=== PATIENT | male | born 1945 | race Caucasian/White ===

== ENCOUNTER 2020-06-06 10:34 | Outpatient (CLI) | payer MEDICARE, BC ==
[2020-06-06] VITALS (22 sets, daily range): BP systolic 140–182; BP diastolic 78–98
== END 2020-06-06 23:59 | disposition home or self-care (01) ==
LOC: CARD DIAG 10:34
PROVIDERS: ATTEND Internal Medicine Cardiovascular Disease
DX: R42 Dizziness and giddiness (principal)
CPT/HCPCS: 93660

== ENCOUNTER 2021-03-20 18:23 | Emergency (ER) | payer MEDICARE, BC ==
[~2021-03-20] VITALS: Ht 172.7 cm; Wt 94.5 kg
[2021-03-20 18:29] VITALS: BP 141/88
[2021-03-20 19:10] LABS: BASOPHILS % (AUTO) 0.2 % (0-1); EOSINOPHILS # (AUTO) 0.1 X10'3 (0-0.9); EOSINOPHILS % (AUTO) 2.3 % (0-6); HEMATOCRIT 44.6 % (42.0-52.0); HEMOGLOBIN 14.9 g/dl (14.0-17.9); LYMPHOCYTES # (AUTO) 2.2 X10'3 (1.1-4.8); LYMPHOCYTES % (AUTO) 43.3 % (21-51); MEAN CORPUSCULAR HEMOGLOBIN 31.3 PG (27.0-31.0); MEAN CORPUSCULAR HGB CONC 33.4 g/dL (33.0-36.5); MEAN CORPUSCULAR VOLUME 93.7 FL (78-98); MEAN PLATELET VOLUME 8.3 FL (7.4-10.4); MONOCYTES # (AUTO) 0.4 X10'3 (0-0.9); MONOCYTES % (AUTO) 8.4 % (2-12); NEUTROPHILS # (AUTO) 2.3 X10'3 (1.8-7.7); NEUTROPHILS % (AUTO) 45.8 % (42-75); PLATELET COUNT 215 X10'3 (140-440); RED BLOOD COUNT 4.77 X10'6 (4.70-6.10); RED CELL DISTRIBUTION WIDTH 13.8 % (11.5-14.5); WHITE BLOOD COUNT 5.1 X10'3 (4.5-11.0)
[2021-03-20 19:12] LABS: D-DIMER 0.32 MG/L FEU (0-0.50)
[2021-03-20 19:17] LABS: ALANINE AMINOTRANSFERASE 34 U/L (12-78); ALBUMIN 3.4 G/DL (3.4-5.0); ALBUMIN/GLOBULIN RATIO 0.9 (1.1-1.5); ALKALINE PHOSPHATASE 96 IU/L (46-116); ANION GAP 8 (8-16); ASPARTATE AMINO TRANSFERASE 21 U/L (10-37); BILIRUBIN,TOTAL 0.7 MG/DL (0.1-1.0); BLOOD UREA NITROGEN 19 MG/DL (7-18); BUN/CREATININE RATIO 22.6 (5.4-32.0); CALCIUM 8.8 MG/DL (8.5-10.1); CHLORIDE 103 MMOL/L (99-107); CREATININE 0.84 MG/DL (0.60-1.10); ETHANOL < 0.010 GM/DL (0.0-0.010); GLUCOSE 194 MG/DL (70-104); POTASSIUM 4.2 MMOL/L (3.5-5.1); SODIUM 139 MMOL/L (135-145); TOTAL CARBON DIOXIDE 28.2 MMOL/L (24-32); eGFR 89 ML/MIN
[2021-03-20 19:29] LABS: URINE AMPHETAMINE SCREEN NEGATIVE (Neg); URINE BARBITUATE SCREEN NEGATIVE (Neg); URINE BENZODIAZEPINES SCREEN NEGATIVE (Neg); URINE CANNABINOID SCREEN NEGATIVE (Neg); URINE COCAINE SCREEN NEGATIVE (Neg); URINE METHADONE SCREEN NEGATIVE (Neg); URINE OPIATE SCREEN NEGATIVE (Neg); URINE PHENCYCLIDINE SCREEN NEGATIVE (Neg)
== END 2021-03-20 21:56 | disposition home or self-care (01) ==
LOC: ER 18:24
DX: H57.89 Other specified disorders of eye and adnexa (principal); H57.12 Ocular pain, left eye; I10 Essential (primary) hypertension; E11.9 Type 2 diabetes mellitus without complications
CPT/HCPCS: 36415; 80053; 80305; 80320; 85025; 85379; 85651; 99283

== ENCOUNTER 2022-06-11 18:18 | Inpatient (IN) | payer MEDICARE, BC ==
[~2022-06-11] VITALS: Ht 172.7 cm; Wt 93.2 kg
[2022-06-11] MEDS ORDERED: normal saline 1000ML IV soln IVB ONE (18:30)
[2022-06-11 18:55] LABS: CLARITY,URINE CLEAR (Clear); COLOR,URINE YELLOW (Yellow); GLUCOSE, URINE >=1000 mg/dl (Neg); KETONES,URINE 15 mg/dl (Neg); LEUKOCYTE ESTERASE ,URINE NEGATIVE (Neg); NITRITES, URINE NEGATIVE (Neg); OCCULT BLOOD,URINE TRACE-INTACT (Neg); PH,URINE 5.5 (4.8-8.0); PROTEIN,URINE NEGATIVE (Neg); UROBILINOGEN,URINE 0.2 E.U/dL (0.2-1.0)
[2022-06-11 19:05] LABS: UA COLLECTION TYPE URINAL
[2022-06-11 19:08] LABS: BACTERIA,URINE NONE SEEN /HPF (Neg); RBC,URINE 0-2 /HPF (0-2); SQUAMOUS EPITHELIAL CELL,UR FEW /LPF (FEW); WBC,URINE 0-4 /HPF (0-4)
[2022-06-11 19:11] LABS: BASOPHILS % (AUTO) 0.5 % (0-1); EOSINOPHILS % (AUTO) 0.6 % (0-6); HEMATOCRIT 49.5 % (42.0-52.0); HEMOGLOBIN 16.7 g/dl (14.0-17.9); LYMPHOCYTES % (AUTO) 42.4 % (21-51); MEAN CORPUSCULAR HEMOGLOBIN 31.2 PG (27.0-31.0); MEAN CORPUSCULAR HGB CONC 33.8 g/dL (33.0-36.5); MEAN CORPUSCULAR VOLUME 92.3 FL (78-98); MEAN PLATELET VOLUME 8.7 FL (7.4-10.4); MONOCYTES # (AUTO) 0.6 X10'3 (0-0.9); MONOCYTES % (AUTO) 8.6 % (2-12); NEUTROPHILS # (AUTO) 3.4 X10'3 (1.8-7.7); NEUTROPHILS % (AUTO) 47.9 % (42-75); PLATELET COUNT 227 X10'3 (140-440); RED BLOOD COUNT 5.36 X10'6 (4.70-6.10); RED CELL DISTRIBUTION WIDTH 13.5 % (11.5-14.5)
[2022-06-11 19:17] LABS: ALANINE AMINOTRANSFERASE 32 U/L (12-78); ALBUMIN 3.6 G/DL (3.4-5.0); ALBUMIN/GLOBULIN RATIO 0.9 (1.1-1.5); ALKALINE PHOSPHATASE 99 IU/L (46-116); ANION GAP 11 (8-16); ASPARTATE AMINO TRANSFERASE 25 U/L (10-37); BILIRUBIN,TOTAL 0.9 MG/DL (0.1-1.0); BLOOD UREA NITROGEN 19 MG/DL (7-18); BUN/CREATININE RATIO 20.7 (5.4-32.0); CALCIUM 9.1 MG/DL (8.5-10.1); CHLORIDE 100 MMOL/L (99-107); CREATININE 0.92 MG/DL (0.60-1.10); GLUCOSE 218 MG/DL (70-104); SODIUM 138 MMOL/L (135-145); TOTAL CARBON DIOXIDE 26.6 MMOL/L (24-32); TOTAL PROTEIN 7.8 G/DL (6.4-8.2); eGFR 80 ML/MIN
[2022-06-11 19:26] LABS: MAGNESIUM 2.3 MG/DL (1.5-2.4)
[2022-06-11] MEDS ORDERED: LOSA50TA64 PO (19:26)
[2022-06-11] MEDS ORDERED: EMPA10TA PO (19:26)
[2022-06-11] MEDS ORDERED: BLOO-1718 (19:26)
[2022-06-11] MEDS ORDERED: METO-395 PO (19:26)
[2022-06-11] MEDS ORDERED: HYDR-3964 PO (19:26)
[2022-06-11] MEDS ORDERED: [UNRECOGNIZED DRUG - CODE] (19:28)
[2022-06-11] MEDS ORDERED: [UNRECOGNIZED DRUG - CODE] (19:28)
[2022-06-11] MEDS ORDERED: ALBU18HF2 INH (19:28)
--- NOTE | 2022-06-11 19:32 | NUR ---
Critical Value lab TNI 1365. Dr. Leo notified
[2022-06-11] MEDS ORDERED: metoprolol tartrate 1mg/ml inj IV STA (21:11)
[2022-06-11] MEDS ORDERED: heparin 10,000 units/1 ML INJ IV PRN (21:15)
[2022-06-11] MEDS: HEPARIN SOD,PORK IN 0.45% NACL 250 ML IV SCH (21:15)
[2022-06-11] MEDS ORDERED: heparin 10,000 units/1 ML INJ IV ONE (21:15)
[2022-06-11] MEDS ORDERED: aspirin 81mg tab.chew PO ONE (21:15)
[2022-06-11] MEDS ORDERED: atorvastatin 20mg tablet PO SCH (21:15)
[2022-06-11] MEDS ORDERED: magnesium 4gm in 100ml NS 100 ML IV PRN (21:55)
[2022-06-11] MEDS ORDERED: mag hydrox/Alum hydrox/simeth 30ml oral suspension PO PRN (21:55)
[2022-06-11] MEDS ORDERED: POTASSIUM BICARB 20meq eff tab 20 MEQ TABLET.EFF PO PRN ×2 (21:55)
[2022-06-11] MEDS ORDERED: HYDROcodone/acetaminophen 10/325mg tab PO PRN (21:55)
[2022-06-11] MEDS ORDERED: magnesium 2GM in 50ml NS 50 ML IV PRN (21:55)
[2022-06-11] MEDS ORDERED: morphine 2 MG/ML inj. syringe IV PRN ×2 (21:55)
[2022-06-11] MEDS ORDERED: magnesium hydroxide 30ml (MOM) UD suspension PO PRN (21:55)
[2022-06-11] MEDS ORDERED: acetaminophen 325mg tablet PO PRN ×2 (21:55)
[2022-06-11] MEDS ORDERED: potassium CL 10mEq/100ml bag 100 ML IV PRN (21:55)
[2022-06-11] MEDS ORDERED: HYDROcodone/acetaminophen 5mg/325mg tablet PO PRN (21:55)
[2022-06-11] MEDS ORDERED: ondansetron/PF 4mg/2ml inj IV PRN (21:55)
[2022-06-11] MEDS ORDERED: magnesium Cl slow-release 64mg tablet PO PRN (21:55)
[2022-06-11 22:01] LABS: APTT 26 SECONDS (22-32)
[2022-06-11] MEDS: metoprolol tartrate 25mg tablet PO SCH (22:08)
--- NOTE | 2022-06-11 22:50 | NUR ---
Critical value from lab TNI 1265
[2022-06-12] VITALS (15 sets, daily range): BP systolic 120–166; BP diastolic 69–95
[2022-06-12] MEDS ORDERED: insulin Lispro (HumaLOG) vial - multi-dose SQ SCH (00:55)
[2022-06-12] MEDS ORDERED: DEXTROSE 15 GM of carb/4 tabs (each vial/BOTTLE has 4 tablets) PO PRN ×2 (00:55)
[2022-06-12] MEDS ORDERED: MESSAGE TO PHARMACY PO ONE (00:55)
[2022-06-12] MEDS ORDERED: dextrose 50%-water 50ml dispensing syringe IV PRN ×2 (00:55)
[2022-06-12] MEDS ORDERED: glucagon, human recombinant 1mg kit SUBCUT PRN (00:55)
[2022-06-12] MEDS ORDERED: HYDROcodone/acetaminophen 5mg/325mg tablet PO PRN (01:35)
[2022-06-12] MEDS ORDERED: albuterol 2.5 MG/3 ML nebule NEB PRN (01:40)
--- NOTE | 2022-06-12 02:37 | NUR ---
REPORT GIVEN TO CATHRYN MORRIS
--- NOTE | 2022-06-12 03:10 | NUR ---
Pt brought up on [facility] walked to bed. Was told that PTT was drawn in ER right before being brought up here. The only PTT showing is the one drawn at 1844. Awaiting PTT to adjust heparin drip if needed. Pt heparin drip is running at 10ml/hr.
[2022-06-12 03:54] LABS: APTT 28 SECONDS (22-32)
--- NOTE | 2022-06-12 04:51 | NUR ---
PTT 28 Changed patient's heparin drip per protocol from 1000 units to 1400 units per hour. IV spreadsheet did not ask for cosigner. Anu Eli RN witnessed rate change.
--- NOTE | 2022-06-12 06:32 | NUR ---
Problems reprioritized. Patient report given, questions answered & plan of care reviewed with ARTURO Ling.
--- NOTE | 2022-06-12 06:33 | NUR ---
Patient in room PCU 3025. I have received report from aren mansfield and had the opportunity to ask questions and assume patient care.
[2022-06-12 07:01] LABS: BASOPHILS % (AUTO) 0.4 % (0-1); EOSINOPHILS # (AUTO) 0.1 X10'3 (0-0.9); EOSINOPHILS % (AUTO) 1.3 % (0-6); HEMOGLOBIN 14.9 g/dl (14.0-17.9); LYMPHOCYTES # (AUTO) 2.8 X10'3 (1.1-4.8); LYMPHOCYTES % (AUTO) 43.9 % (21-51); MEAN CORPUSCULAR HEMOGLOBIN 31.2 PG (27.0-31.0); MEAN CORPUSCULAR HGB CONC 33.8 g/dL (33.0-36.5); MEAN CORPUSCULAR VOLUME 92.5 FL (78-98); MONOCYTES # (AUTO) 0.5 X10'3 (0-0.9); NEUTROPHILS % (AUTO) 46.4 % (42-75); PLATELET COUNT 188 X10'3 (140-440); RED BLOOD COUNT 4.76 X10'6 (4.70-6.10); RED CELL DISTRIBUTION WIDTH 13.7 % (11.5-14.5); WHITE BLOOD COUNT 6.5 X10'3 (4.5-11.0)
[2022-06-12] MEDS: docusate sod 100mg capsule PO SCH ×2 (07:16→19:46)
[2022-06-12] MEDS: metoprolol tartrate 25mg tablet PO SCH (07:22)
[2022-06-12] MEDS: atorvastatin 20mg tablet PO SCH (07:22)
[2022-06-12 07:30] LABS: ALANINE AMINOTRANSFERASE 30 U/L (12-78); ALBUMIN 3.1 G/DL (3.4-5.0); ALBUMIN/GLOBULIN RATIO 0.8 (1.1-1.5); ALKALINE PHOSPHATASE 66 IU/L (46-116); ANION GAP 10 (8-16); ASPARTATE AMINO TRANSFERASE 33 U/L (10-37); BILIRUBIN,TOTAL 0.8 MG/DL (0.1-1.0); BLOOD UREA NITROGEN 16 MG/DL (7-18); BUN/CREATININE RATIO 20.5 (5.4-32.0); CALCIUM 8.7 MG/DL (8.5-10.1); CHLORIDE 105 MMOL/L (99-107); CREATININE 0.78 MG/DL (0.60-1.10); GLUCOSE 126 MG/DL (70-104); MAGNESIUM 2.1 MG/DL (1.5-2.4); POTASSIUM 4.6 MMOL/L (3.5-5.1); SODIUM 142 MMOL/L (135-145); TOTAL CARBON DIOXIDE 26.9 MMOL/L (24-32); TOTAL PROTEIN 6.9 G/DL (6.4-8.2); eGFR > 90 ML/MIN
[2022-06-12] MEDS: EMPAGLIFLOZIN 10 MG TABLET PO SCH (08:00)
[2022-06-12] MEDS: K and/or MAG REPLACEMENT MC SCH ×2 (08:00→19:50)
[2022-06-12] MEDS ORDERED: aspirin 81mg, enteric-coated 1 TAB TABLET.DR PO SCH (08:00)
[2022-06-12 08:29] LABS: HEMOGLOBIN A1C 10.9 % (4.5-6.2)
--- NOTE | 2022-06-12 08:45 | NUR ---
PT REFUSED JARDIANCE. NOTIFIED
[2022-06-12] MEDS ORDERED: PERFLUTREN PROTEIN-A MICROSPHR (Optison) 0.22 MG/ML 3ML VIAL IV ONE (09:40)
[2022-06-12] MEDS: HEPARIN SOD,PORK IN 0.45% NACL 250 ML IV SCH (10:44)
[2022-06-12 14:18] LABS: CHOL/HDL RATIO 4.4 (0.00-4.99); CHOLESTEROL 213 MG/DL (0-200); HDL CHOLESTEROL 48 MG/DL (35-60); LDL CHOLESTEROL 139 MG/DL (50-100); TRIGLYCERIDES 95 MG/DL (20-135)
[2022-06-12] MEDS ORDERED: nitroGLYCERIN-Tridil 50MG/D5W 250 ML IV ONE (14:26)
[2022-06-12] MEDS ORDERED: heparin 1,000unit/ml 10ml vial 10 ML ONE (14:27)
[2022-06-12] MEDS ORDERED: fentaNYL/PF 50MCG/1 ML 2ML syringe ONE (14:27)
[2022-06-12] MEDS ORDERED: iohexol 350MG/ML 100ml bottle IV ONE ×3 (14:27→16:37)
[2022-06-12] MEDS ORDERED: verapamil 2.5 mg/ml inj IV ONE (14:27)
[2022-06-12] MEDS ORDERED: midazolam 1 mg/ML 2ml injection ONE (14:27)
[2022-06-12] MEDS ORDERED: LIDOcaine 1%/PF 5ML 10 MG/ML VIAL ONE ×2 (14:27→15:37)
[2022-06-12] MEDS ORDERED: heparin 25,000 UNIT/250ml bag 250 ML IV ONE (15:01)
[2022-06-12] MEDS ORDERED: ticagrelor 90mg tablet ONE (16:42)
[2022-06-12] MEDS ORDERED: PEG 3350/Na sulf,bicarb,Cl/KCl oral sol 4 liter bottle PO ONE (17:00)
--- NOTE | 2022-06-12 17:11 | NUR ---
RECD REPORT FROM KERWIN MORRIS BELT MEASURER
[2022-06-12 17:18] LABS: ISTAT Hct ART 44 %PCV (42-52); ISTAT O2 SATURATION ARTERIAL 96 % (95-98); ISTAT SOURCE ART
[2022-06-12] MEDS ORDERED: HYDROcodone/acetaminophen 10/325mg tab PO PRN (18:05)
[2022-06-12] MEDS: normal saline 1000ml 1,000 ML IV SCH (18:06)
--- NOTE | 2022-06-12 18:32 | NUR ---
Problems reprioritized. Patient report given, questions answered & plan of care reviewed with JO OSORIO RN.
[2022-06-12] MEDS: HYDROcodone/acetaminophen 5mg/325mg tablet PO PRN ×2 (19:43→23:51)
[2022-06-12] MEDS: furosemide 20 MG/2 ML vial IV SCH (19:46)
[2022-06-12] MEDS ORDERED: insulin glargine (Lantus) pen - multi-dose SQ SCH (21:00)
[2022-06-12] MEDS ORDERED: metoprolol succinate 25mg (24-HOUR) SR. Tablet PO SCH (21:00)
[2022-06-13] MEDS: normal saline 1000ml 1,000 ML IV SCH ×2 (01:44→07:15)
[2022-06-13 02:00] VITALS: BP 138/76
[2022-06-13 06:13] LABS: BASOPHILS % (AUTO) 0.3 % (0-1); EOSINOPHILS # (AUTO) 0.1 X10'3 (0-0.9); EOSINOPHILS % (AUTO) 1.7 % (0-6); HEMATOCRIT 40.2 % (42.0-52.0); HEMOGLOBIN 13.7 g/dl (14.0-17.9); LYMPHOCYTES # (AUTO) 2.1 X10'3 (1.1-4.8); LYMPHOCYTES % (AUTO) 38.8 % (21-51); MEAN CORPUSCULAR HEMOGLOBIN 31.2 PG (27.0-31.0); MEAN CORPUSCULAR HGB CONC 34.1 g/dL (33.0-36.5); MEAN CORPUSCULAR VOLUME 91.6 FL (78-98); MEAN PLATELET VOLUME 8.6 FL (7.4-10.4); MONOCYTES # (AUTO) 0.5 X10'3 (0-0.9); MONOCYTES % (AUTO) 9.1 % (2-12); NEUTROPHILS # (AUTO) 2.7 X10'3 (1.8-7.7); NEUTROPHILS % (AUTO) 50.1 % (42-75); PLATELET COUNT 174 X10'3 (140-440); RED BLOOD COUNT 4.39 X10'6 (4.70-6.10); RED CELL DISTRIBUTION WIDTH 13.2 % (11.5-14.5); WHITE BLOOD COUNT 5.4 X10'3 (4.5-11.0)
--- NOTE | 2022-06-13 06:22 | NUR ---
Patient in room PCU 3025. I have received report from JO OSORIO RN and had the opportunity to ask questions and assume patient care.
[2022-06-13 06:29] LABS: ALANINE AMINOTRANSFERASE 33 U/L (12-78); ALBUMIN 2.6 G/DL (3.4-5.0); ALBUMIN/GLOBULIN RATIO 0.8 (1.1-1.5); ALKALINE PHOSPHATASE 54 IU/L (46-116); ANION GAP 7 (8-16); ASPARTATE AMINO TRANSFERASE 26 U/L (10-37); BILIRUBIN,TOTAL 0.8 MG/DL (0.1-1.0); BLOOD UREA NITROGEN 15 MG/DL (7-18); BUN/CREATININE RATIO 21.7 (5.4-32.0); CALCIUM 8.1 MG/DL (8.5-10.1); CHLORIDE 107 MMOL/L (99-107); CREATININE 0.69 MG/DL (0.60-1.10); GLUCOSE 99 MG/DL (70-104); MAGNESIUM 1.8 MG/DL (1.5-2.4); SODIUM 139 MMOL/L (135-145); TOTAL CARBON DIOXIDE 24.8 MMOL/L (24-32); TOTAL PROTEIN 5.9 G/DL (6.4-8.2); eGFR > 90 ML/MIN
[2022-06-13 06:45] VITALS: BP 112/76
[2022-06-13] MEDS: K and/or MAG REPLACEMENT MC SCH (08:00)
[2022-06-13] MEDS: atorvastatin 20mg tablet PO SCH (08:00)
[2022-06-13] MEDS ORDERED: ticagrelor 90mg tablet PO SCH ×2 (08:00→20:00)
[2022-06-13] MEDS: EMPAGLIFLOZIN 10 MG TABLET PO SCH (08:00)
[2022-06-13] MEDS ORDERED: aspirin 81mg, enteric-coated 1 TAB TABLET.DR PO SCH (08:00)
[2022-06-13] MEDS: furosemide 20 MG/2 ML vial IV SCH (08:00)
[2022-06-13] MEDS: docusate sod 100mg capsule PO SCH (08:00)
[2022-06-13] MEDS ORDERED: LANTUS SQ (09:43)
[2022-06-13] MEDS ORDERED: FURO-150 PO (09:43)
[2022-06-13] MEDS ORDERED: TICA90TA PO (09:43)
[2022-06-13] MEDS ORDERED: ASPI-1071 PO (09:43)
[2022-06-13] MEDS ORDERED: ROSU40TA PO (09:55)
[2022-06-13 11:00] VITALS: BP 148/81
--- NOTE | 2022-06-13 13:22 | NUR ---
Noted pt with T2DM, current A1c 10.9%. Pt seen at bedside for written and verbal DM education. Pt states he sees his PCP every couple of months though is hoping to get a referral for an button inspector. 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 Pt reports upon discharge he is to discontinue Jardiance and begin insulin. Pt states he recently got a DexCom for checking blood sugars though hasn't begun using it yet. All of patient's questions were answered at this time. RD contact information provided and pt encouraged to reach out if needed. Pt endorses a good appetite and denies food allergies or difficulty chewing/swallowing. Will remain available. Addendum: 06/13/22 at [address] Amended: Links added.
--- NOTE | 2022-06-13 13:45 | NUR ---
PT DISCHARGED IN STABLE CONDITION. LEFT FACILITY IN PRIVATE VEHICLE WITH SON. IV DC [facility]ULA INTACT. FOLLOW UP INSTRUCTIONS GIVEN, ALL QUESTIONS ANSWERED. ALL BELONGING IN HAND. Addendum: 06/13/22 at 1346 by Bernice Werner RN Amended: Links added.
[2022-06-14 06:37] LABS: ISTAT Hct MIX 43 %PCV (42-52); ISTAT O2 SATURATION MIX VENOUS 64 % (60-80); ISTAT SOURCE VEN
== END 2022-06-13 13:34 | disposition home or self-care (01) | DRG 246 ==
LOC: ER 18:19 → ED HOLD 22:03 → EDBEDREQ 22:13 → PCU 3S 06-12 02:56
PROVIDERS: ADMIT Internal Medicine; ATTEND Internal Medicine
PROC: 4A023N8 Measurement of Cardiac Sampling and Pressure, Bilateral, Percutaneous Approach (ICD-10-PCS; principal; 2022-06-12)
PROC: 027034Z Dilation of Coronary Artery, One Artery with Drug-eluting Intraluminal Device, Percutaneous Approach (ICD-10-PCS; 2022-06-12)
PROC: B2111ZZ Fluoroscopy of Multiple Coronary Arteries using Low Osmolar Contrast (ICD-10-PCS; 2022-06-12)
PROC: B2151ZZ Fluoroscopy of Left Heart using Low Osmolar Contrast (ICD-10-PCS; 2022-06-12)
DX: I21.4 Non-ST elevation (NSTEMI) myocardial infarction (principal); I50.21 Acute systolic (congestive) heart failure; E11.65 Type 2 diabetes mellitus with hyperglycemia; E78.5 Hyperlipidemia, unspecified; I11.0 Hypertensive heart disease with heart failure; E66.01 Morbid (severe) obesity due to excess calories; F12.90 Cannabis use, unspecified, uncomplicated; W18.39XA Other fall on same level, initial encounter; M17.0 Bilateral primary osteoarthritis of knee; N40.0 Benign prostatic hyperplasia without lower urinary tract symptoms; Z79.02 Long term (current) use of antithrombotics/antiplatelets; Z79.4 Long term (current) use of insulin; Z79.82 Long term (current) use of aspirin; Z79.84 Long term (current) use of oral hypoglycemic drugs; Z79.899 Other long term (current) drug therapy; Y93.89 Activity, other specified; Y92.89 Other specified places as the place of occurrence of the external cause; Y99.8 Other external cause status; Z68.31 Body mass index [BMI] 31.0-31.9, adult; Z98.52 Vasectomy status
CPT/HCPCS: 93306; 93460; 96361; 96365; 96375; 96376; 99285; C9600; 36415; 71045; 76937; 80053; 80061; 81001; 82803; 82948; 83036; 83735; 83880; 84484; 85014; 85025; 85347; 85379; 85610; 85730; 87081; 93005; 93880; 94760; 99152; 99153; A4620; A5120; A6258; C1725; C1751; C1760; C1769; C1874; C1894; G0378; J1644; J1815; J2250; J3010; J3490; J7030; Q9967